=== PATIENT | female | born 1965 | race Caucasian/White ===

== ENCOUNTER 2024-11-28 06:15 | Day surgery (SDC) | payer BC, SELFPAY | END 2024-11-28 13:30 | disposition home or self-care (01) | LOC: GI 06:15 | PROVIDERS: ATTENDING PHYSICIAN Internal Medicine Gastroenterology | DX: Z12.11 Encounter for screening for malignant neoplasm of colon (principal); D12.3 Benign neoplasm of transverse colon; K64.8 Other hemorrhoids; K59.00 Constipation, unspecified; K31.7 Polyp of stomach and duodenum; K31.89 Other diseases of stomach and duodenum; R13.10 Dysphagia, unspecified; Z83.719 Family history of colon polyps, unspecified | CPT/HCPCS: 45380; 43239; 88305; 88342 ==

== ENCOUNTER 2025-02-23 06:08 | Emergency (ER) | payer BC, SELFPAY ==
[2025-02-23 06:10] VITALS: BP 150/98
--- NOTE | 2025-02-23 06:42 | ED.GENMED ---
History of Present Illness
General
Chief Complaint: Abdominal Symptoms
Source: patient
Exam Limitations: none
Time Seen by Provider: 02/23/25 06:33
History of Present Illness
History of Present Illness:
See MDM
Past History
Past History
ED Past Medical History: Psychiatric
ED Past Surgical History: Other (Jaw surgery, tonsillectomy)
Social History
Tobacco: Non-smoker
Alcohol: None
Drug: None
Personal: Single
Living: alone
Phy Exam
Physical Exam
Physical Exam:
See MDM
Course
Orders/Labs/Results
Orders:
Orders
02/23/25 06:41
CT Abd/pelvis W Iv Cont Urgent
Comment:
Reason For Exam: vomiting, general abd pain
STOOL [C difficile Antigen & Toxins] Urgent
KAYCEE Source: Feces/Stool
Specimen Description:
Stool Culture Urgent
KAYCEE Source: Feces/Stool
Specimen Description:
0.9% Sodium Chloride 1000 ml [Nss] 1,000 ml IV BOLUS
Ketorolac [Toradol] 30 mg IV NOW STA
Lorazepam [Ativan] 0.5 mg IV NOW STA
02/23/25 07:01
Complete Blood Count/With Diff Urgent
Comprehensive Metabolic Panel Urgent
Lipase Urgent
Abnormal Lab Results
02/23/25
07:01
RBC 3.79 L 10^6/uL
(4.20-5.40)
Hgb 11.1 L g/dL
(12.0-16.0)
Hct 34.3 L %
(37.0-47.0)
MCHC 32.4 L g/dL
(33.0-37.0)
Lymphocytes % 18.3 L %
(20.5-51.1)
Chloride 111 H mmol/L
(98-107)
Glucose 103 H mg/dl
(70-99)
02/23/25 07:01
02/23/25 07:01
Vital Signs
Initial and Last Documented VS:
Initial Vital Signs
Temp Pulse Resp BP Pulse Ox
97.8 F 80 22 150/98 100
02/23/25 06:10 02/23/25 06:10 02/23/25 06:10 02/23/25 06:10 02/23/25 06:10
Last Documented Vital Signs
Temp Pulse Resp BP Pulse Ox
97.8 F 80 22 112/69 98
02/23/25 06:10 02/23/25 06:10 02/23/25 06:10 02/23/25 08:00 02/23/25 08:35
MDM/Problems Addressed
Differential Diagnosis Includes:
Note:
CHIEF COMPLAINT(S)
Abdominal pain and diarrhea
HISTORY OF PRESENT ILLNESS
The patient is a 59-year-old female presenting with abdominal pain and diarrhea since Sunday. She reports onset of symptoms after consuming a roast beef sandwich. She lives alone and has not noticed any similar symptoms in others. The abdominal
pain is described as cramping and feels like it is in the intestines, with pain oscillating in severity. She also experiences frequent burping with an odor reminiscent of the consumed food. The patient took ondansetron (Zofran) without significant
relief, and oral rehydration solutions have not been retained. She mentioned the smell being particularly prominent during episodes of diarrhea. Current episodes of diarrhea persist with interventions. The pain intensity increases and decreases,
with periods of feeling as though 'a bear is in there.' There is no history of abdominal surgeries. She describes anxiety related to the symptoms.
PLAN
- Administer intravenous fluids due to inability to retain oral fluids.
- Order stool cultures to assess bacterial involvement.
- Conduct a CT scan of the abdomen to rule out other potential causes, such as colitis.
- Administer intravenous ketorolac for pain management.
- Consider the use of intravenous lorazepam for anxiety and its ancillary anti-nausea properties.
- Discuss the likelihood of food poisoning with symptoms managed symptomatically while awaiting further test results.
PHYSICAL EXAM
General: Well appearing and non-toxic
HEENT: protecting airway. Mildly dry mucous membranes
Neck: appears supple
CV: No evidence of cyanosis
Resp: No accessory muscle use
Abd: Non-distended. No significant tenderness
Extremities: No deformities
Neuro: alert
Psych: Mildly anxious
Skin: Intact
DIFFERENTIAL DIAGNOSIS
The Differential Diagnosis includes, in no particular order and is not limited to:
1. Acute Gastroenteritis (Food Poisoning)
2. Infectious Colitis
3. Inflammatory Bowel Disease
4. Irritable Bowel Syndrome
5. Diverticulitis
6. Pancreatitis
CARE-UPDATE
02/23/25 - 08:55
Patient reports feeling 'better but the same,' indicating no significant change in symptoms. Laboratory results and CT scan are unremarkable, with no signs of colitis, mass, or infection. The absence of a sample, while not ideal, is somewhat
reassuring against severe bacterial infections such as C. diff, Campylobacter, Shigella, or Salmonella, especially given the stable white count. Plan to manage symptoms with Bentyl for bowel spasms. Prescriptions for Bentyl and additional Zofran for
nausea will be provided. Encouraged increased fluid intake to potentially facilitate sample collection, with reassessment if symptoms persist or worsen.
DISPOSITION
The patient is stable and tolerating oral intake, feeling comfortable enough to be discharged with follow-up instructions for her primary care provider.
EMERGENCY TREATMENTS ADMINISTERED
Intravenous fluids and intravenous ketorolac were administered for hydration and pain management.
MEDICATION RECONCILIATION
Bentyl was prescribed for bowel spasms and additional Zofran for nausea management.
MEDICAL DECISION MAKING
1. Number & Complexity of Problems: Acute Gastroenteritis suspected, with potential food poisoning. Differential includes other gastrointestinal conditions.
2. Data Reviewed: Laboratory tests and imaging to rule out infection and colitis. My independent review of laboratory tests shows stable results without indications of colitis or bacterial infection. A CT scan confirmed no acute colitis or
obstruction.
3. Risk: Consideration of admission was made due to initial symptom severity, but outpatient management is deemed appropriate based on stable vitals and the patients response to treatment.
PATIENT EDUCATION AND COUNSELING
The patient was advised on the importance of hydration and monitoring symptoms. She was educated about potential warning signs that would require immediate medical attention, such as worsening pain.
FOLLOW-UP INSTRUCTIONS
Follow up with primary care provider for reassessment and further management if symptoms persist.
*Pulse Oximetry
SaO2: 100
*Critical Care Note
Total Time (30-74mins, 75-104mins- exclusive of procedures): Not Applicable
ED Attending Note
-
Portions of this chart may have been created with voice recognition software.� Occasional wrong word or��sound alike� substitutions may have occurred due to the inherent limitations of voice recognition software.
Discharge Plan
Departure
Patient Disposition: Home (Routine Discharge)
Date of Disposition: 02/23/25
Time of Disposition: 08:59
Patient with high blood pressure during this ER visit?: No
Discharge Problem:
Diarrhea
Instructions: Diarrhea in adults - ED discharge instructions
Prescriptions:
New
ondansetron 4 mg Tablet,Disintegrating
4 mg PO BIDPRN PRN (Reason: nausea/vomiting) Qty: 10 0RF
dicyclomine 10 mg capsule
10 mg PO TID PRN (Reason: Abdominal pain) Qty: 14 0RF
No Action
Abilify:
1 tab PO DAILY
clonazepam 0.5 MG tablet
0.5 mg PO HSPRN PRN (Reason: sleep)
Trintellix
1 tab PO DAILY
Vitamin D
1 tab PO DAILY
Referrals:
Janet Franz MD [Family Provider, Internal Medicine]
Activity Restrictions/Additional Instructions:
Please return for any worsening symptoms.
You may return at any time if you have further concerns.
Please follow up with your doctor at the first available appointment, preferably this week.
Thank you for choosing [facility].
Interventions
Interventions:
*Risk Screen - Suicide Last Done: 02/23/25 06:10
*General Assessment Last Done: 02/23/25 06:55
*Neglect/Abuse Screening Last Done: 02/23/25 06:10
*ED- Fall Risk Assessment Last Done: 02/23/25 06:55
*ED COVID-19 Vaccine History Last Done: 02/23/25 06:55
MS-Vovhkf-Viotdakzbw Assessment Last Done: 02/23/25 06:55
ED- Cardiac Assessment Last Done: 02/23/25 06:55
ED- Neurological Assessment Last Done: 02/23/25 06:55
ED- Pulmonary Assessment Last Done: 02/23/25 06:55
Discharge Date and Time
Print Language: LIBYAN
[2025-02-23 06:55] VITALS: BMI 26.5
[2025-02-23] MEDS: NSS 1000 IV (07:06)
[2025-02-23] MEDS: ATIVAN 0.5 MG IV (07:06)
[2025-02-23] MEDS: TORADOL 30 MG IV (07:07)
[2025-02-23 07:10] VITALS: BP 137/76
[2025-02-23 07:19] LABS: % Basophils 0.5 % (0-2); % Eosinophils 4.5 % (0-6); % Immature Granulocytes 0.3 % (0-0.5); % Lymphocytes 18.3 % (20.5-51.1); % Monocytes 8.5 % (1.7-9.3); % Neutrophils 67.9 % (42.2-75.2); Absolute Eosinophils 0.3 10^3/uL (0-0.7); Absolute Lymphocytes 1.2 10^3/uL (1.2-3.4); Absolute Monocytes 0.5 10^3/uL (0.1-0.6); Absolute Neutrophils 4.3 10^3/uL (1.4-6.5); Hematocrit 34.3 % (37.0-47.0); Hemoglobin 11.1 g/dL (12.0-16.0); Mean Corp Hgb Conc. 32.4 g/dL (33.0-37.0); Mean Corpuscular Hgb 29.3 pg (27.0-31.0); Mean Corpuscular Volume 90.5 fL (81.0-99.0); Mean Platelet Volume 9.6 fL (7.4-10.4); Nucleated Red Blood Cells % 0 %; Platelet Count 353 10^3/uL (130-400); Red Blood Cell Count 3.79 10^6/uL (4.20-5.40); Red Cell Dist. Width 13.5 % (11.5-14.5); White Blood Cell Count 6.3 10^3/uL (4.8-10.8)
[2025-02-23 07:35] LABS: ALT (SGPT) 19 U/L (0-35); AST (SGOT) 22 U/L (14-36); Albumin 4.2 g/dl (3.5-5.0); Alkaline Phosphatase 62 U/L (38-126); Blood Urea Nitrogen 12 mg/dl (7-17); Calcium 8.6 mg/dl (8.4-10.2); Carbon Dioxide 24 mmol/L (22-30); Chloride 111 mmol/L (98-107); Estimated Creatinine Clearance 70 ml/min; Glucose 103 mg/dl (70-99); Lipase 52 U/L (23-300); Potassium 3.7 mmol/L (3.5-5.1); Sodium 144 mmol/L (135-145); Total Bilirubin 0.8 mg/dl (0.2-1.3); Total Protein 6.9 g/dl (6.3-8.2); eGFR > 60.00
[2025-02-23 08:00] VITALS: BP 112/69
[2025-02-23] MEDS: BENTYL 10 MG PO (09:10)
== END 2025-02-23 09:16 | disposition home or self-care (01) ==
LOC: EMR 06:08
PROVIDERS: EMERGENCY PHYSICIAN Student in an Organized Health Care Education/Training Program; FAMILY PHYSICIAN Internal Medicine
DX: R19.7 Diarrhea, unspecified (principal); F41.9 Anxiety disorder, unspecified
CPT/HCPCS: 99284; 96374; 96375; 96361; 74177; 80053; 83690; 85025; Q9967

== ENCOUNTER → 2025-06-03 08:50 | Outpatient (REF) | payer BC, SELFPAY | LOC: HWRAD 08:50 | PROVIDERS: ATTENDING PHYSICIAN Nurse Practitioner Adult Health; FAMILY PHYSICIAN Internal Medicine; REFERRING PHYSICIAN Internal Medicine | DX: Z12.31 Encounter for screening mammogram for malignant neoplasm of breast (principal); M81.0 Age-related osteoporosis without current pathological fracture | CPT/HCPCS: 77063; 77067; 77080 ==

== ENCOUNTER 2025-06-17 07:06 | Outpatient (RCR) | payer BC, SELFPAY | END 2025-06-17 23:59 | disposition home or self-care (01) | LOC: RPT 07:06 | PROVIDERS: ATTENDING PHYSICIAN Nurse Practitioner Adult Health; FAMILY PHYSICIAN Internal Medicine | DX: K59.09 Other constipation (principal); M62.81 Muscle weakness (generalized); Z73.6 Limitation of activities due to disability | CPT/HCPCS: 97110; 97161; 97530 ==